=== PATIENT | male | born 1995 | race Caucasian/White ===

== ENCOUNTER 2018-12-30 18:53 | Emergency (ER) | payer OTHER, SELFPAY ==
[2018-12-30 18:55] VITALS: BP 125/70; PULSE 99; RESP 16; TEMP 38.9; O2SAT 96; BMI 27.3
[2018-12-30] MEDS: KETOROLAC 60 MG/2 ML VIAL IM (19:14)
[2018-12-30] MEDS: ONDANSETRON 4 MG ODT SL (19:16)
[2018-12-30 20:05] VITALS: TEMP 37.4
[2018-12-30 20:19] VITALS: TEMP 37.4
[2018-12-30 20:26] VITALS: BP 125/70; PULSE 89; RESP 18; O2SAT 99
--- NOTE | 2018-12-30 20:27 | ED.FEVER ---
HPI - Fever <DAVIN Segal - Last Filed: 12/30/18 20:34> General Chief Complaint: Fever Stated Complaint: fever Time Seen by Provider: 12/30/18 18:55 Source: patient Mode of arrival: ambulatory Limitations: no limitations History of Present Illness HPI Narrative: The patient is a 23-year-old male who denies medical history he was a current smoker who presents he did not feel well at work today, had fever and chills. He took his temperature and found to be 103. He took Tylenol at 2:00 p.m.. He states he took 2 500 mg Tylenol. He has some sore throat. He denies any abdominal pain, dysuria, cough or congestion. He denies any ear pain. He does endorse some sore throat. He is able to keep down food and fluids well. He does complain of decreased appetite. Related Data Allergies Allergy/AdvReac Type Severity Reaction Status Date / Time No Known Drug Allergies Allergy Verified 12/30/18 19:04 Review of Systems <DAVIN Segal - Last Filed: 12/30/18 20:34> Review of Systems GENERAL: See HPI HEENT: Denies sinus pain, ear pain, sore throat, difficulty swallowing, dizziness. RESPIRATORY: Denies dyspnea, cough, wheezing, hemoptysis, sputum. CARDIOVASCULAR: Denies chest pain, palpitations, orthopnea, edema, GASTROINTESTINAL: Denies nausea, vomiting, abdominal pain, diarrhea, constipation, melena. : Denies dysuria, frequency, incontinence, hematuria, urinary retention. MUSCULOSKELETAL: denies weakness, joint pain, or bony pain SKIN: Denies rash, skin lesions, or other NEUROLOGIC: Denies weakness, headache, numbness, change in speech, confusion, seizures, incoordination. PSYCHIATRIC: No concerning psychosocial issues. 12 point review of systems is negative except for those stated above PFSH <DAVIN Segal - Last Filed: 12/30/18 20:34> Social History Smoking Status: Current every day smoker Social History Smoking Status: Current every day smoker Exam <DAVIN Segal - Last Filed: 12/30/18 20:34> Narrative Exam Narrative: GENERAL: This is a well-nourished, well-developed patient, no acute distress HEAD: Atraumatic. Normocephalic. No temporal or scalp tenderness. EYES: Pupils equal round and reactive. Extraocular motions intact. No scleral icterus. No injection or drainage. ENT: Nose without bleeding, purulent drainage or septal hematoma. Throat without erythema, tonsillar hypertrophy or exudate. Uvula midline. Airway patent. Bilateral TMs pearly friend. NECK: Trachea midline. No JVD or lymphadenopathy. Supple, nontender, no meningeal signs. CARDIOVASCULAR: Regular rate and rhythm without murmurs, gallops, or rubs. RESPIRATORY: Clear to auscultation. Breath sounds equal bilaterally. No wheezes, rales, or rhonchi. No cough. No increased respiratory effort. No accessory muscle use. GASTROINTESTINAL: Abdomen soft, non-tender, nondistended. No hepato-splenomegaly, or palpable masses. No guarding. EXTREMITIES: No clubbing, cyanosis, or edema. No joint tenderness, effusion, or edema noted. BACK: Nontender without deformity or crepitance. No flank tenderness. NEURO: AOx3. SKIN: No rash or erythema. Initial Vital Signs Initial Vital Signs: Vital Signs Temperature 102.1 F H 12/30/18 18:55 Pulse Rate 99 H 12/30/18 18:55 Respiratory Rate 16 12/30/18 18:55 Blood Pressure 125/70 12/30/18 18:55 Pulse Oximetry 96 12/30/18 18:55 <Danny Moss MD - Last Filed: 12/30/18 22:57> Initial Vital Signs Initial Vital Signs: Vital Signs Temperature 102.1 F H 12/30/18 18:55 Pulse Rate 99 H 12/30/18 18:55 Respiratory Rate 16 12/30/18 18:55 Blood Pressure 125/70 12/30/18 18:55 Pulse Oximetry 96 12/30/18 18:55 Course <DAVIN Segal - Last Filed: 12/30/18 20:34> Orders Ordered: Discontinued Medications Ketorolac Tromethamine (Toradol) 60 mg IM NOW ONE Stop: 12/30/18 19:04 Last Admin: 12/30/18 19:14 Dose: 60 mg Ondansetron HCl (Zofran Odt) 4 mg SL NOW ONE Stop: 12/30/18 19:03 Last Admin: 12/30/18 19:16 Dose: 4 mg Vital Signs - 8 hr 12/30/18 18:55 12/30/18 20:05 12/30/18 20:19 Temperature 102.1 F H 99.3 F 99.3 F Pulse Rate 99 H Respiratory Rate 16 Blood Pressure 125/70 Pulse Oximetry 96 12/30/18 20:26 Temperature Pulse Rate 89 Respiratory Rate 18 Blood Pressure 125/70 Pulse Oximetry 99 <Danny Moss MD - Last Filed: 12/30/18 22:57> Orders Ordered: Discontinued Medications Ketorolac Tromethamine (Toradol) 60 mg IM NOW ONE Stop: 12/30/18 19:04 Last Admin: 12/30/18 19:14 Dose: 60 mg Ondansetron HCl (Zofran Odt) 4 mg SL NOW ONE Stop: 12/30/18 19:03 Last Admin: 12/30/18 19:16 Dose: 4 mg Vital Signs - 8 hr 12/30/18 18:55 12/30/18 20:05 12/30/18 20:19 Temperature 102.1 F H 99.3 F 99.3 F Pulse Rate 99 H Respiratory Rate 16 Blood Pressure 125/70 Pulse Oximetry 96 12/30/18 20:26 Temperature Pulse Rate 89 Respiratory Rate 18 Blood Pressure 125/70 Pulse Oximetry 99 MDM - Fever <DAVIN Segal - Last Filed: 12/30/18 20:34> Lab Data Point of Care Testing Rapid Strep A Negative MDM Narrative Medical decision making narrative: The patient is a 23-year-old male current smoker denies any medical history presents with a chief complaint of fever. He does not have any urinary symptoms. He does not have any abdominal pain to palpation. He has fever spinal well to a single injection of Toradol. I discussed at length follow up with primary care provider. We discussed further workup, but the patient declined at this point time. He states he will follow up with his PCP tomorrow. I discussed coming back to ER for any acute concerns such as inability keep down fluids. Patient has no questions or concerns upon discharge. <Danny Moss MD - Last Filed: 12/30/18 22:57> Lab Data Point of Care Testing Rapid Strep A Negative Discharge Plan Departure Patient Disposition: Home Clinical Impression: Fever Qualifiers: Fever type: unspecified Qualified Code(s): R50.9 - Fever, unspecified Discharge Date/Time: 12/30/18 20:26 Interventions: ED Discharge Assessment Last Done: 12/30/18 20:26 Instructions: DI for Fever (Symptom) -- Adult Activity Restrictions/Additional Instructions: Your strep test came back negative. Your fever responded well to Toradol, which is an NSAID. Please continue [id number] medications as needed for fever and/or pain. I suggest Tylenol and Motrin. Do not take any Motrin for 8 hours after the Toradol injection. Please come back to the emergency department for any concerns such as chest pain, shortness of breath, inability keep down fluids etc. Referrals: [facility] [Provider Group] <Danny Moss MD - Last Filed: 12/30/18 22:57> Cosign ED Attending Faraz Attestation: I was present in the ER at the time this patient's care. I was available for consultation or to see the patient directly. I agree with the evaluation, assessment and treatment plan.
== END 2018-12-30 20:26 | disposition home or self-care (01) ==
PROVIDERS: Emergency Provider Nurse Practitioner Family
DX: R50.9 Fever, unspecified (principal)
CPT/HCPCS: 87880; 96372; 99282; 99283; J1885